=== PATIENT | female | born 1985 | race Caucasian/White ===

== ENCOUNTER 2018-05-31 16:47 | Emergency (ER) | payer SELFPAY ==
[~2018-05-31] VITALS: Ht 180.3 cm; Wt 62.1 kg
--- NOTE | 2018-05-31 16:55 | NUR ---
[id number], came to er c/o Facial swelling "noticed pimple like bumps on left side of face last week now worse. Hard/painful/swollen". rr is even and unlabored with nad noted. skin is warm and dry. Awaiting MD for eval.
--- NOTE | 2018-05-31 17:30 | NUR ---
DR BISHOP AT BEDSIDE
[2018-05-31 17:53] LABS: BASOPHILS # (AUTO) 0.1 /CMM (0.0-0.2); BASOPHILS % (AUTO) 0.7 % (0.0-2.0); EOSINOPHILS % (AUTO) 0.7 % (0.0-6.0); HEMATOCRIT 40 % (33-45); HEMOGLOBIN 13.8 g/dL (11.5-14.8); LYMPHOCYTES # (AUTO) 1.8 /CMM (0.8-4.8); LYMPHOCYTES % (AUTO) 17.3 % (20.0-44.0); MEAN CORPUSCULAR HGB CONC 34 g/dl (31.0-36.0); MEAN CORPUSCULAR VOLUME 102 fL (82-100); MONOCYTES # (AUTO) 0.7 /CMM (0.1-1.30); MONOCYTES % (AUTO) 6.4 % (2.0-12.0); NEUTROPHILS # (AUTO) 7.9 /CMM (1.8-8.9); NEUTROPHILS % (AUTO) 74.9 % (43.0-81.0); PLATELET COUNT (AUTO) 361 /CMM (150-450); RED BLOOD CELL COUNT(AUTO) 3.93 MIL/uL (4.0-5.2); WHITE BLOOD COUNT (AUTO) 10.5 K/uL (4.3-11.0)
[2018-05-31] MEDS ORDERED: VANCOMYCIN 1 GM in IV D5W 250 ML IV ONE (18:00)
[2018-05-31] MEDS ORDERED: CLINDAMYCIN 600 MG in IV D5W 100 ML IV ONE (18:00)
[2018-05-31] MEDS ORDERED: CLINDAMYCIN 600 MG in IV D5W 50 ML IV SCH (18:00)
[2018-05-31 18:06] LABS: CALCIUM, SERUM 9.2 mg/dL (8.5-10.1); CREATININE 0.7 mg/dL (0.6-1.3)
[2018-05-31 18:18] LABS: POTASSIUM 4.6 mmol/L (3.5-5.1)
--- NOTE | 2018-05-31 19:22 | NUR ---
RECEIVED REPORT FROM ROGER SHAW FOR [place]
--- NOTE | 2018-05-31 19:22 | NUR ---
REPORT GIVEN TO ART SHAW FOR [facility]
[2018-05-31] MEDS ORDERED: KETOROLAC TROMETHAMINE INJ 30 MG/ML VIAL ONE (19:58)
[2018-05-31] MEDS ORDERED: KETOROLAC TROMETHAMINE INJ 30 MG/ML VIAL IV ONE (20:00)
--- NOTE | 2018-05-31 20:53 | NUR ---
Patient discharged to home in stable condition. Written and verbal after care instructions given. Patient verbalizes understanding of instruction. IV removed. Catheter intact and site benign. Pressure and 4x4 applied to site. No bleeding noted.Pt ambulatory with a steady gait
[2018-05-31 20:54] VITALS: BP 116/74
== END 2018-05-31 20:54 | disposition home or self-care (01) ==
LOC: ER 16:50
DX: L08.9 Local infection of the skin and subcutaneous tissue, unspecified (principal); Z98.890 Other specified postprocedural states
CPT/HCPCS: 36415; 80048; 85025; 85730; 87040; 96365; 96367; 96375; 99283; J1885; J3370; J3490; J7060 ×2

== ENCOUNTER 2018-06-04 21:52 | Emergency (ER) | payer SELFPAY ==
--- NOTE | 2018-06-04 23:29 | NUR ---
CALLED PT'S NAME THREE TIMES, NO RESPONSE, WILL TRY AGAIN AT A LATER TIME.
--- NOTE | 2018-06-04 23:51 | NUR ---
CALLED PT'S NAME THREE TIMES, NO RESPONSE, WILL TRY AGAIN AT A LATER TIME.
--- NOTE | 2018-06-05 00:07 | NUR ---
CALLED PTS NAME THREE TIMES, NO RESPONSE, PT HAS LEFT EMERGENCY DEPARTMENT
[2018-06-05] MEDS ORDERED: CLIN300C11 PO (09:33)
[2018-06-05] MEDS ORDERED: DOXY100T2 PO (09:33)
[2018-06-05] MEDS ORDERED: IBUP-1490 PO (09:33)
== END 2018-06-05 00:09 | disposition left against medical advice (07) ==
LOC: ER 21:52
DX: Z53.21 Procedure and treatment not carried out due to patient leaving prior to being seen by health care provider (principal)

== ENCOUNTER 2018-06-05 07:12 | Emergency (ER) | payer MEDICAID ==
[~2018-06-05] VITALS: Ht 180.3 cm; Wt 67.6 kg
--- NOTE | 2018-06-05 07:31 | NUR ---
CAME IN FOR L CHEEK PAIN AND SWELLING. ON ATB CLINDAMYCIN AND DOXYCYCLINE FOR 5 DAYS, LAST TAKEN AT 7AM TODAY. TO ER BED 1, HOOKED TO MONITOR, CHANGED TO GOWN, PROVIDED W WARM BLANKET. DR ALSTON ATY BEDSIDE.
[2018-06-05 07:58] LABS: BASOPHILS # (AUTO) 0.1 /CMM (0.0-0.2); BASOPHILS % (AUTO) 0.6 % (0.0-2.0); EOSINOPHILS % (AUTO) 2.2 % (0.0-6.0); HEMATOCRIT 37 % (33-45); HEMOGLOBIN 12.8 g/dL (11.5-14.8); LYMPHOCYTES # (AUTO) 3.3 /CMM (0.8-4.8); LYMPHOCYTES % (AUTO) 28.3 % (20.0-44.0); MEAN CORPUSCULAR HGB CONC 35 g/dl (31.0-36.0); MEAN CORPUSCULAR VOLUME 101 fL (82-100); MONOCYTES # (AUTO) 1.1 /CMM (0.1-1.30); MONOCYTES % (AUTO) 9.7 % (2.0-12.0); NEUTROPHILS % (AUTO) 59.2 % (43.0-81.0); PLATELET COUNT (AUTO) 357 /CMM (150-450); RED BLOOD CELL COUNT(AUTO) 3.68 MIL/uL (4.0-5.2); WHITE BLOOD COUNT (AUTO) 11.7 K/uL (4.3-11.0)
[2018-06-05 08:03] LABS: POTASSIUM 4.3 mmol/L (3.5-5.1)
[2018-06-05] MEDS ORDERED: IV NS 0.9% 250 ML IV ONE (08:24)
[2018-06-05] MEDS ORDERED: CT SWABBABLE VALVE TRANS SET 1 EA INFUS.SET MC ONE (08:24)
[2018-06-05] MEDS ORDERED: IOHEXOL-300 100 ML VIAL IV ONE (08:24)
--- NOTE | 2018-06-05 08:25 | NUR ---
PT WHEELED OUT VIA WHEELCHAIR FOR CT SCAN.
[2018-06-05] MEDS: VANCOMYCIN 1 GM in IV D5W 250 ML IV ONE (09:01)
--- NOTE | 2018-06-05 09:20 | NUR ---
CALLED Timi Baires MD, HE IS IN [facility] TODAY [phone] LEFT [place] TO CALL US BACK.
[2018-06-05] MEDS ORDERED: DOXY100T2 PO (09:33)
[2018-06-05] MEDS ORDERED: CLIN300C11 PO (09:33)
[2018-06-05] MEDS ORDERED: IBUP-1490 PO (09:33)
--- NOTE | 2018-06-05 09:34 | NUR ---
[facility] [place] [phone] SEMAJ TO FAX FACESHEET TO [phone] AND SPOKE WITH MD ALSTON.
--- NOTE | 2018-06-05 10:58 | NUR ---
CALLED [facility] TO FOLLOW UP [phone] SEMAJ... HE SAID IT MIGHT BE A WHILE.
--- NOTE | 2018-06-05 12:09 | NUR ---
CALLED [facility] FOR UPDATE - WE ARE STILL WAITING TO HEAR BACK FROM [employer]
--- NOTE | 2018-06-05 13:09 | NUR ---
PT IN BED, ASLEEP, EASILY AROUSABLE BY VOICE. HOOKED TO MONITOR. KEPT WARM AND SAFE.
[2018-06-05] MEDS: CLINDAMYCIN 900 MG/6 ML VIAL IM ONE (13:58)
--- NOTE | 2018-06-05 14:12 | NUR ---
PT IN BED, ASLEEP, EASILY AROUSABLE BY VOICE. HOOKED TO MONITOR. KEPT WARM AND SAFE. FAMILY AT BEDSIDE
--- NOTE | 2018-06-05 15:06 | NUR ---
ALONDRA ACCEPTED TO [facility] ER ACCEPTING DR JUAN GONCALVES NUMBER FOR REPORT IS [facility] [place] NUMBER [id number]
--- NOTE | 2018-06-05 15:48 | NUR ---
SET UP BLS RIG WITH CINDY GOING TO [facility] ER - [id number] - TRIP# [id number]
--- NOTE | 2018-06-05 16:03 | NUR ---
REPORT GIVEN TO SARKIS SHAW OF [facility] [phone] EXT:[id number]
[2018-06-05 16:18] VITALS: BP 117/70
== END 2018-06-05 16:45 | disposition home or self-care (01) ==
LOC: ER 07:14
DX: L02.01 Cutaneous abscess of face (principal); R60.0 Localized edema; Z41.1 Encounter for cosmetic surgery
CPT/HCPCS: 36415; 70487; 80048; 83605; 84702; 85025; 87040 ×2; 96365; 99284; J3370; J7050; J7060; Q9967